=== PATIENT | male | born 1990 | race Caucasian/White ===

== ENCOUNTER 2018-11-04 14:39 | Emergency (ER) | payer SELFPAY ==
[~2018-11-04] VITALS: Ht 162.6 cm; Wt 58.4 kg
[2018-11-04 14:50] VITALS: Ht 162.6 cm; Wt 58.4 kg
[2018-11-04] MEDS ORDERED: ACETAMINOPHEN 500 MG TAB PO STA (18:14)
[2018-11-04] MEDS: KETOROLAC 60 MG INJ IM STA ×2 (18:28→18:29)
[2018-11-04] MEDS ORDERED: NAPR-985 PO (19:26)
[2018-11-04 19:49] VITALS: BP 115/65; PULSE 102; RESP 16
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
== END 2018-11-04 19:51 | disposition home or self-care (01) ==
LOC: FTE 14:39
DX: S20.212A Contusion of left front wall of thorax, initial encounter (principal); S80.212A Abrasion, left knee, initial encounter; S30.810A Abrasion of lower back and pelvis, initial encounter; V49.59XA Passenger injured in collision with other motor vehicles in traffic accident, initial encounter
CPT/HCPCS: 71046; 71100; 99283; J1885